=== PATIENT | male | born 2005 | race Caucasian/White ===

== ENCOUNTER 2023-07-29 16:26 | Emergency (ER) | payer OTHER ==
[~2023-07-29] VITALS: Ht 177.8 cm; Wt 72.6 kg
[2023-07-29 17:02] VITALS: BP 113/51; PULSE 118; RESP 19; TEMP 101.4; O2SAT 100
[2023-07-29] MEDS ORDERED: ACETAMINOPHEN EXTRA STRENGTH 500 MG TAB ONE (17:11)
[2023-07-29] MEDS: ACETAMINOPHEN EXTRA STRENGTH 500 MG TAB PO ONE (17:12)
[2023-07-29] MEDS ORDERED: ONDA-188 SL (18:05)
[2023-07-29] MEDS ORDERED: ACET-10509 PO (18:05)
[2023-07-29] MEDS ORDERED: PROM118S5 PO (18:05)
[2023-07-29] MEDS ORDERED: IBUP-2213 PO (18:05)
[2023-07-29 18:11] VITALS: BP 121/68; PULSE 104; RESP 16; TEMP 99.4; O2SAT 100
== END 2023-07-29 18:11 | disposition home or self-care (01) ==
LOC: MED 16:26
DX: U07.1 COVID-19 (principal); R03.0 Elevated blood-pressure reading, without diagnosis of hypertension; Z79.1 Long term (current) use of non-steroidal anti-inflammatories (NSAID); Z79.899 Other long term (current) drug therapy
CPT/HCPCS: 99283